=== PATIENT | male | born 1955 | race Hispanic/Latino ===

== ENCOUNTER 2023-03-18 15:23 | Outpatient (CLI) | payer MEDICARE, BC | END 2023-03-18 15:24 | disposition home or self-care (01) | LOC: CSHRAD 15:23 | PROVIDERS: ATTEND Neurological Surgery | DX: M47.22 Other spondylosis with radiculopathy, cervical region (principal) | CPT/HCPCS: 72050 ==

== ENCOUNTER 2023-12-23 13:15 | Observation (INO) | payer BC, MEDICARE ==
[2023-12-23] MEDS ORDERED: HYDROcodone/Acetaminophen 5/325 mg Tablet PO PRN (18:40)
[2023-12-23] MEDS ORDERED: Ondansetron ODT 4 MG TAB PO PRN (18:40)
[2023-12-23] MEDS ORDERED: Nitroglycerin 0.4 MG TAB (25 Tab Bottle) SL PRN (18:41)
[2023-12-23 19:05] VITALS: BMI 30.8
[2023-12-23 19:34] LABS: Troponin I Less than 0.010 ng/mL (< 0.028)
[2023-12-23] MEDS ORDERED: TADALAFIL 10 MG PO SCH (19:45)
[2023-12-23 20:06] LABS: Magnesium 1.8 mg/dL (1.6-2.6)
[2023-12-23] MEDS: Enoxaparin 40 MG (0.4 mL) SYRINGE SC SCH (20:32)
[2023-12-23] MEDS: Gabapentin 300 MG CAP PO SCH (20:33)
[2023-12-23] MEDS: Atorvastatin Calcium 40 MG TAB PO SCH (20:33)
[2023-12-23] MEDS: TICAGRELOR 90 MG TABLET PO SCH (20:33)
[2023-12-23] MEDS: Nitroglycerin 2% Ointment 1 INCH/1 GM Packet TOP SCH (20:34)
[2023-12-23] MEDS: Acetaminophen 325 MG TAB PO PRN (20:35)
[2023-12-24 04:25] LABS: #Basophils 0.01 10x3/uL (0.0-0.2); #Eosinphils 0.06 10x3/uL (0.0-0.5); #Monocytes 0.64 10x3/uL (0.0-1.1); #Neutrophils 2.58 10x3/uL (1.5-8.4); %Basophils 0.2 % (0.0-2.0); %Eosinophils 1.4 % (0.0-6.0); %Lymphocytes 25.1 % (18.0-47.0); %Monocytes 14.5 % (0.0-10.0); %Neutrophils 58.3 % (40.0-75.0); Hematocrit 40.8 % (38.8-50.0); Hemoglobin 12.9 g/dL (13.5-17.5); Mean Corpuscular HGB CONC 31.6 g/dL (32.0-36.0); Mean Corpuscular Hemoglobin 20.2 pg (27.0-33.0); Mean Corpuscular Volume 63.9 fl (81.2-95.1); Mean Platelet Volume 10.3 fl (7.4-10.4); Platelet Count 187 10x3/uL (150-450); RBC Distribution Width 18.1 % (11.5-14.5); Red Blood Cell (RBC) Count 6.38 10x6/uL (4.32-5.72); White Blood Cell (WBC) Count 4.4 10x3/uL (3.5-10.5)
[2023-12-24 04:27] LABS: Anion Gap 15 mmol/L (10-20); BUN (Urea Nitrogen) 18 mg/dL (8.4-25.7); Calc. Creatinine Clearance 114 mL/min (70-130); Calcium 9.1 mg/dL (7.8-10.44); Carbon Dioxide 18 mmol/L (23-31); Cardiac Risk 3.3 (Less than 4.5); Chloride 110 mmol/L (98-107); Cholesterol 97 mg/dl (< 200 Desired); Estimated GFR 94; Glucose 86 mg/dL (80-115); HDL Cholesterol 29 mg/dL (>60 Neg Risk); LDL Cholesterol, Calculated 52 mg/dL; Potassium 3.7 mmol/L (3.5-5.1); Sodium 139 mmol/L (136-145); Triglycerides 82 mg/dL (Less than 150)
[2023-12-24 04:58] LABS: Platelet Adequacy Comment Appears Adequate
[2023-12-24 04:59] LABS: Hypochromia MODERATE=16-30 cells (100X) (0-5/hpf); Microcytosis MODERATE=15-30 cells (100X) (0-5/hpf)
[2023-12-24 05:01] LABS: Elliptocytes SLIGHT = 2-5 cells (100X) (0-1/hpf)
[2023-12-24] MEDS ORDERED: Aspirin Chewable 81 MG TAB PO SCH (09:00)
[2023-12-24] MEDS: Aspirin 81 mg Enteric Coated Tablet PO SCH (09:06)
[2023-12-24] MEDS: Enoxaparin 40 MG (0.4 mL) SYRINGE SC SCH (09:06)
[2023-12-24] MEDS: Lisinopril 20 MG TAB PO SCH (09:07)
[2023-12-24] MEDS: Icosapent Ethyl 1 GM CAPSULE PO SCH (09:08)
[2023-12-24] MEDS: Trospium 20 MG TAB PO SCH (09:09)
[2023-12-24 09:19] LABS: Iron 80 ug/dL (65-175); Iron Binding Capacity, Total 293 mcg/dL (261-462)
[2023-12-24 15:06] VITALS: BP 128/74; TEMP 98.4
== END 2023-12-24 15:15 | disposition home or self-care (01) ==
LOC: INTOOBSV 13:15 → CSHTELE 13:15
PROVIDERS: ADMIT Internal Medicine; ATTEND Internal Medicine
PROC: B246ZZZ Ultrasonography of Right and Left Heart (ICD-10-PCS; principal; 2023-12-24)
DX: R07.89 Other chest pain (principal); I25.10 Atherosclerotic heart disease of native coronary artery without angina pectoris; G47.33 Obstructive sleep apnea (adult) (pediatric); I10 Essential (primary) hypertension; I25.2 Old myocardial infarction; Z85.46 Personal history of malignant neoplasm of prostate; Z86.74 Personal history of sudden cardiac arrest; Z79.899 Other long term (current) drug therapy; Z79.82 Long term (current) use of aspirin; Z95.818 Presence of other cardiac implants and grafts; D56.9 Thalassemia, unspecified; D50.8 Other iron deficiency anemias
CPT/HCPCS: 36415; 71045; 80048; 80053; 80061; 81001; 82728; 83540; 83550; 83690; 83735; 84484; 85025; 85060; 85379; 93005; 93010; 93306; 96372; G0378; J1650